=== PATIENT | male | born 1975 | race Caucasian/White ===

== ENCOUNTER 2021-08-24 10:07 | Emergency (ER) | payer BC, SELFPAY ==
--- NOTE | ~2021-08-24 | CT_ITS ---
EXAMINATION: CT brain wo con DATE: 08/24/2021 10:49 INDICATION: Right facial weakness. Facial tingling. Headache. TECHNIQUE: Computed tomography (CT) of the head was performed without intravenous contrast. The mA wa s adjusted according to patient size. Iterative reconstruction technique was employed. The dose-lengt h product was 605.33 mGy-cm. COMPARISON: None FINDINGS: There is low-attenuation in the left subinsular white matter, which is within normal limits for the patient's age as an isolated finding. There is no intracranial hemorrhage, acute infarction, or abnormal intracranial mass lesion. The ventricles are normal in size. The orbits are normal. Ther e is mild mucosal thickening in the paranasal sinuses. The mastoid air cells are normal. IMPRESSION: 1. Normal aging brain. Reviewed, dictated and finalized at location A. [employer] IMPRESSION: 1. Normal aging brain.
[2021-08-24 10:12] VITALS: BP 144/91; PULSE 79; RESP 21; O2SAT 100
[2021-08-24 10:20] VITALS: PULSE 70
--- NOTE | 2021-08-24 10:36 | ED.GENADULT ---
HPI - General Adult General Chief complaint: Unspecified Stated complaint: right face numbness Time Seen by Provider: 08/24/21 10:24 Source: patient and RN notes reviewed Mode of arrival: ambulatory Limitations: no limitations History of Present Illness HPI narrative: This is a 45 year old male who presents for evaluation of right facial droop. Patient reports have posterior headache yesterday and he also reports pain behinds his right ear. He noticed this morning when he looked in mirror that he was unable to close his right eye completely. He also reports right eye redness. He noticed tingling to his tongue yesterday. HE denies weakness, numbness or tingling to his extremities. Denies dizziness, nausea, vomiting, chest pain or shortness of breath. Denies visual changes. Related Data Allergies Allergy/AdvReac Type Severity Reaction Status Date / Time No Known Allergies Verified 05/30/10 13:08 Review of Systems Review of Systems: All systems reviewed & are unremarkable except as noted in HPI and below PMFSH Past Medical History Medical History (Updated 08/24/21 @ 11:08 by Dottie Faith MD) Patient denies medical problems Social History Social History (Updated 08/24/21 @ 10:40 by Dottie Faith MD) Smoking status: Never smoker Alcohol intake: current Alcohol use details: occasionally Exam Narrative: GENERAL: Well-appearing, well-nourished, and in no acute distress. HEAD: Normocephalic, atraumatic EYES: PERRLA and EOMI, conjunctiva clear without discharge EARS: TM's clear bilaterally without erythema or dullness NOSE: Nares clear, no rhinorrhea or epistaxis THROAT:Mucous membranes moist, Oropharynx normal without erythema, exudate, peritonsillar swelling or fluctuance NECK: Supple, without lymphadenopathy or mass RESPIRATORY: No respiratory distress, Airway patent, Respirations non-labored, Clear to auscultation without rales, rhonchi or wheeze HEART: Regular rate and rhythm. No murmur heard. Normal peripheral pulses. ABDOMEN: Soft, nontender, nondistended, normal active bowel sounds. No masses. No rebound or guarding, No organomegaly. EXTREMITIES: No edema, normal strength with full range of motion. SKIN: Warm, dry, normal color without rash NEURO: Alert and oriented x3. PSYCH: Normal mood and affect. Neuro: General: patient oriented x3, moves all extremities, Normal light touch and pain sensation and no meningeal signs Cranial nerves: Yes Bilaterally intact EOM present, Yes Midline tongue present, Yes Ability to bilaterally elevate shoulders present and Yes Other cranial nerve findings present (right upper and lower facial paralysis consistent with [place]) Speech: normal speech Gait exam (Neuro): Normal gait present Motor exam (neuro): 5/5 motor strength present throughout Sensory Exam: normal sensation Coordination: [id number] test normal and [id number] test normal Course Reevaluation(s) Reevaluation #1: I discussed with patient that his symptoms appear to be related to [place]'s Palsy. I have discussed discharge plan and treatment. Date: 08/24/21 Time: 11:06 Vital Signs Vital signs: Vital Signs Pulse Rate 79 08/24/21 10:12 Respiratory Rate 21 H 08/24/21 10:12 Blood Pressure 144/91 H 08/24/21 10:12 Pulse Oximetry 100 08/24/21 10:12 Pulse Rate 69 08/24/21 11:21 Respiratory Rate 20 08/24/21 11:21 Blood Pressure 149/102 H 08/24/21 11:21 Pulse Oximetry 100 08/24/21 11:21 Medical Decision Making Vital Signs Vital Signs: Vital Signs Pulse Rate 79 08/24/21 10:12 Respiratory Rate 21 H 08/24/21 10:12 Blood Pressure 144/91 H 08/24/21 10:12 Pulse Oximetry 100 08/24/21 10:12 Pulse Rate 69 08/24/21 11:21 Respiratory Rate 20 08/24/21 11:21 Blood Pressure 149/102 H 08/24/21 11:21 Pulse Oximetry 100 08/24/21 11:21 Imaging Data Radiologist's impression: ITS Impressions Head CT 08/24/21 10:59 IMPRESSION:
[2021-08-24 11:21] VITALS: BP 149/102; PULSE 69; RESP 20; O2SAT 100
== END 2021-08-24 11:23 | disposition home or self-care (01) ==
PROVIDERS: Emergency Provider General Practice; PCP Family Medicine
DX: G51.0 Bell's palsy (principal)
CPT/HCPCS: 70450; 99284